=== PATIENT | female | born 1965 | race American Indian/Alaskan Native ===

== ENCOUNTER 2021-02-18 14:33 | Emergency (ER) | payer MEDICAID ==
[2021-02-18] MEDS ORDERED: ONDANSETRON 4 MG/2 ML INJ IV ONE (16:39)
[2021-02-18] MEDS ORDERED: MORPHINE 4 MG/1 ML INJ IV ONE (16:39)
--- NOTE | 2021-02-18 16:43 | Emergency Department Report ---
HPI - General Chief Complaint: Abdominal Pain Time Seen by Provider: 02/18/21 16:13 - HPI HPI: This is a 55-year-old female presents to the emergency department with complaint of generalized abdominal pain, nausea with vomiting, that has been going on for the past 1.5 weeks. The patient was recently in the emergency department at [facility] and says that she was discharged home with the diagnosis of a left kidney mass. She was told to follow-up outpatient with primary care, gastroenterology, and urology. She was unable to fill the Zofran ODT that was prescribed to her. She says that the outpatient appointments are too far out for the level of abdominal pain she is currently having. She says that it is 9 out of 10 in intensity. And she says that it feels like it is "moving." No known aggravating or alleviating factors. Patient denies any fever, diarrhea, constipation, dysuria, vaginal bleeding or discharge. ED Past Medical Hx - Past Medical History Previous Medical History?: Yes Hx Seizures: Yes Additional medical history: Mass on kidney. Hx TBI - Medications Home Medications: Home Medications Medication Instructions Recorded Confirmed Last Taken Type HYDROcodone/APAP 5-325 [[place] 1 each PO Q6HR PRN #12 tablet 02/18/21 Unknown Rx 5/325] Ondansetron [Zofran Odt] 4 mg PO Q8HR PRN #15 tab.rapdis 02/18/21 Unknown Rx ED Review of Systems ROS: Stated complaint: CHEST PAIN, ABD PAIN Other details as noted in HPI Comment: All other systems reviewed and negative Constitutional: denies: chills, fever Eyes: denies: eye pain, vision change ENT: denies: ear pain, throat pain Respiratory: denies: cough, shortness of breath Cardiovascular: denies: chest pain, palpitations Gastrointestinal: abdominal pain, nausea, vomiting. denies: diarrhea, constipation Genitourinary: denies: dysuria, discharge Musculoskeletal: denies: back pain, arthralgia Skin: denies: rash, lesions Neurological: denies: headache, weakness Physical Exam - Physical Exam Vital Signs: Vital Signs 02/18/21 14:45 Temperature 99.1 F Pulse Rate 72 Respiratory 18 Rate Blood Pressure 150/104 O2 Sat by Pulse 99 Oximetry Physical Exam: GENERAL: The patient is well-developed well-nourished. HENT: Normocephalic. Atraumatic. Patient has moist mucous membranes. EYES: Extraocular motions are intact. NECK: Supple. Trachea is midline. CHEST/LUNGS: Clear to auscultation. There is no respiratory distress noted. HEART/CARDIOVASCULAR: Regular. There is no tachycardia. There is no murmur. ABDOMEN: Abdomen is soft. Generalized abdominal tenderness to palpation. No guarding. Patient has normal bowel sounds. There is no abdominal distention. SKIN: Skin is warm and dry. NEURO: The patient is awake, alert, and oriented. The patient is cooperative. The patient has no focal neurologic deficits. Normal speech. MUSCULOSKELETAL: There is no tenderness or deformity. There is no limitation range of motion. ED Course Vital Signs 02/18/21 14:45 Temperature 99.1 F Pulse Rate 72 Respiratory 18 Rate Blood Pressure 150/104 O2 Sat by Pulse 99 Oximetry - EJ/Peripheral Line Neck L Time Out Performed: Yes Indications: nurses unable to establis Skin Cleansed in Sterile Fashion: Yes Size: 22 Dressing Placed: Tegaderm, tape Patient Tolerated Procedure: well ED Medical Decision Making - Lab Data Result diagrams: 02/18/21 16:47 02/18/21 16:47 Lab Results 02/18/21 02/18/21 02/18/21 Range/Units 16:47 16:47 Unknown WBC 7.4 (4.5-11.0) K/mm3 RBC 4.65 (3.65-5.03) M/mm3 Hgb 15.2 H (10.1-14.3) gm/dl Hct 45.7 H (30.3-42.9) % MCV 98 H (79-97) fl MCH 33 H (28-32) pg MCHC 33 (30-34) % RDW 13.3 (13.2-15.2) % Plt Count 233 (140-440) K/mm3 Lymph % (Auto) 29.7 (13.4-35.0) % [facility] % (Auto) 3.1 (0.0-7.3) % Eos % (Auto) 0.4 (0.0-4.3) % Baso % (Auto) 0.6 (0.0-1.8) % Lymph # (Auto) 2.2 (1.2-5.4) K/mm3 [facility] # (Auto) 0.2 (0.0-0.8) K/mm3 Eos # (Auto) 0.0 (0.0-0.4) K/mm3 Baso # (Auto) 0.0 (0.0-0.1) K/mm3 Seg Neutrophils % 66.2 (40.0-70.0) % Seg Neutrophils # 4.9 (1.8-7.7) K/mm3 Sodium 137 (137-145) mmol/L Potassium 4.5 (3.6-5.0) mmol/L Chloride 104.7 (98-107) mmol/L Carbon Dioxide 23 (22-30) mmol/L Anion Gap 14 mmol/L BUN 14 (7-17) mg/dL Creatinine 0.5 L (0.6-1.2) mg/dL Estimated GFR > 60 ml/min BUN/Creatinine Ratio 28 % Glucose 89 (65-100) mg/dL Calcium 10.0 (8.4-10.2) mg/dL Total Bilirubin 0.70 (0.1-1.2) mg/dL Direct Bilirubin < 0.2 (0-0.2) mg/dL Indirect Bilirubin 0.5 mg/dL AST 15 (5-40) units/L ALT 9 (7-56) units/L Alkaline Phosphatase 74 (35-129) units/L Total Protein 6.9 (6.3-8.2) g/dL Albumin 4.2 (3.9-5) g/dL Albumin/Globulin Ratio 1.6 % Lipase 22 (13-60) units/L Urine Color Yellow (Yellow) Urine Turbidity Clear (Clear) Urine pH 6.0 (5.0-7.0) Ur Specific [place] 1.016 (1.003-1.030) Urine Protein <15 mg/dl (Negative) mg/dL Urine Glucose (UA) Neg (Negative) mg/dL Urine Ketones Neg (Negative) mg/dL Urine Blood Sm (Negative) Urine Nitrite Neg (Negative) Urine Bilirubin Neg (Negative) Urine Urobilinogen 2.0 (<2.0) mg/dL Ur Leukocyte Esterase Neg (Negative) Urine WBC (Auto) 1.0 (0.0-6.0) /HPF Urine RBC (Auto) 16.0 (0.0-6.0) /HPF U Epithel Cells (Auto) 1.0 (0-13.0) /HPF Urine Mucus Few /HPF - Radiology Data Radiology results: report reviewed CT ABDOMEN AND PELVIS WITH CONTRAST INDICATION: Abd pain, hx of L kidney mass on U/S. TECHNIQUE: Axial CT images were obtained through the abdomen and pelvis after 100 cc IV contrast. All CT scans at this location are performed using CT dose reduction for ALARA by means of automated exposure control. COMPARISON: None available. FINDINGS: LOWER CHEST: No significant abnormality. LIVER: No significant abnormality. GALLBLADDER: No significant abnormality. BILE DUCTS: No significant abnormality. PANCREAS: No significant abnormality. SPLEEN: No significant abnormality. ADRENALS: No significant abnormality. RIGHT KIDNEY and URETER: No significant abnormality. LEFT KIDNEY and URETER: Simple 1.8 cyst lower pole left kidney. Simple 1.9 cm cyst lateral midpole left kidney. STOMACH and SMALL BOWEL: No significant abnormality. COLON: No significant abnormality. APPENDIX: Normal PERITONEUM: No free fluid. No free air. No fluid collection. LYMPH NODES: No significant adenopathy. AORTA and ARTERIES: No significant abnormality. IVC and VEINS: No significant abnormality. URINARY BLADDER: No significant abnormality. REPRODUCTIVE ORGANS: No significant abnormality. ADDITIONAL FINDINGS: None. SKELETAL SYSTEM: No significant abnormality. IMPRESSION: 1. 2 simple left renal cysts. No solid renal mass. - Medical Decision Making This patient presents to the emergency department with complaint of abdominal pain, nausea and vomiting. She says that she was recently diagnosed with a left kidney mass. Patient's labs have been mostly unremarkable including CBC, metabolic panel, urinalysis. CT scan of the abdomen and pelvis with IV contrast shows 2 simple left renal cysts without evidence of a solid mass. No CT evidence or lab abnormalities to explain the patient's abdominal pain. She was given IV analgesia and antiemetics. She was reevaluated multiple times over multiple hours and is feeling improved. There has been no further nausea or vomiting and the patient was able to pass an oral challenge. Vital signs reassuring throughout her ED course including being afebrile. For all these reasons the patient appears safe for discharge home at this time. She has been given outpatient referral for [facility] and instructed to follow- up with her PCP. She will return to the emergency department with any worsening of her symptoms or with any acute distress. Critical Care Time: No Critical care attestation.: If time is entered above; I have spent that time in minutes in the direct care of this critically ill patient, excluding procedure time. ED Disposition Clinical Impression: Renal cyst Abdominal pain Qualifiers: Abdominal location: generalized Qualified Code(s): R10.84 - Generalized abdominal pain Nausea & vomiting Qualifiers: Vomiting type: unspecified Vomiting Intractability: non-intractable Qualified Code(s): R11.2 - Nausea with vomiting, unspecified Hypertension Qualifiers: Hypertension type: primary hypertension Qualified Code(s): I10 - Essential (primary) hypertension Disposition: TO HOME OR SELFCARE Is pt being admited?: No Condition: Stable Instructions: Abdominal Pain, Adult, Nausea and Vomiting, Adult, Hypertension, Adult, Abdominal Pain (ED), Hypertension (ED) Additional Instructions: Please follow-up with a primary care physician in the next few days. Please follow-up with gastroenterology regarding your abdominal pain. I am giving you a referral for [facility]. The CT scan of your abdomen and pelvis did not show any solid renal mass, but did show multiple cysts on your kidneys. You have been prescribed a medication that is sedating and therefore should not be taken prior to driving, working, and responsible for children and in no way should be mixed with alcohol of any quantity. Return to the emergency department with any worsening of your symptoms, new or concerning symptoms not addressed during this current emergency department visit, or with any acute distress. Prescriptions: HYDROcodone/APAP 5-325 [[place] 5/325] 1 each PO Q6HR PRN #12 tablet PRN Reason: Pain Ondansetron [Zofran Odt] 4 mg PO Q8HR PRN #15 tab.rapdis PRN Reason: Nausea Referrals: [facility] [Provider Group] - 2-3 Days Time of Disposition: 19:01
[2021-02-18 17:16] LABS: Basophils % (Auto) 0.6 % (0.0-1.8); Eosinophils % (Auto) 0.4 % (0.0-4.3); Hematocrit 45.7 % (30.3-42.9); Hemoglobin 15.2 gm/dl (10.1-14.3); Lymphocytes # (Auto) 2.2 K/mm3 (1.2-5.4); Lymphocytes % (Auto) 29.7 % (13.4-35.0); Mean Corpuscular HGB Conc 33 % (30-34); Mean Corpuscular Volume 98 fl (79-97); Monocytes # (Auto) 0.2 K/mm3 (0.0-0.8); Monocytes % (Auto) 3.1 % (0.0-7.3); Platelet Count 233 K/mm3 (140-440); Red Blood Count 4.65 M/mm3 (3.65-5.03); Red Cell Distribution Width 13.3 % (13.2-15.2)
[2021-02-18 17:43] LABS: Alanine Aminotransferase 9 units/L (7-56); Albumin 4.2 g/dL (3.9-5); Blood Urea Nitrogen 14 mg/dL (7-17); Hemolysis Index 43
[2021-02-18 17:49] LABS: BUN/Creatinine Ratio 28; Bilirubin,Direct < 0.2 mg/dL (0-0.2)
[2021-02-18 18:35] LABS: Bilirubin,Urine NEG (Negative); Blood,Urine SM (Negative); Color,Urine Yellow (Yellow); Mucus,Urine FEW /HPF; Protein,Urine <15 mg/dL mg/dL (Negative)
--- NOTE | 2021-02-18 18:54 | Cat Scan Report ---
CT ABDOMEN AND PELVIS WITH CONTRAST INDICATION: Abd pain, hx of L kidney mass on U/S. TECHNIQUE: Axial CT images were obtained through the abdomen and pelvis after 100 cc IV contrast. All CT scans at this location are performed using CT dose reduction for ALARA by means of automated exposure contr ol. COMPARISON: None available. FINDINGS: LOWER CHEST: No significant abnormality. LIVER: No significant abnormality. GALLBLADDER: No significant abnormality. BILE DUCTS: No significant abnormality. PANCREAS: No significant abnormality. SPLEEN: No significant abnormality. ADRENALS: No significant abnormality. RIGHT KIDNEY and URETER: No significant abnormality. LEFT KIDNEY and URETER: Simple 1.8 cyst lower pole left kidney. Simple 1.9 cm cyst lateral midpole le ft kidney. STOMACH and SMALL BOWEL: No significant abnormality. COLON: No significant abnormality. APPENDIX: Normal PERITONEUM: No free fluid. No free air. No fluid collection. LYMPH NODES: No significant adenopathy. AORTA and ARTERIES: No significant abnormality. IVC and VEINS: No significant abnormality. URINARY BLADDER: No significant abnormality. REPRODUCTIVE ORGANS: No significant abnormality. ADDITIONAL FINDINGS: None. SKELETAL SYSTEM: No significant abnormality. IMPRESSION: 1. 2 simple left renal cysts. No solid renal mass. Signer Name: Rubén Campos MD Signed: 02/18/2021 6:50 PM Workstation Name: [id number]
[2021-02-18 19:06] VITALS: BP 158/92
== END 2021-02-18 19:10 | disposition home or self-care (01) ==
LOC: ED 14:33
DX: N28.1 Cyst of kidney, acquired (principal); R10.84 Generalized abdominal pain; R11.2 Nausea with vomiting, unspecified; R56.9 Unspecified convulsions; I10 Essential (primary) hypertension; Z79.899 Other long term (current) drug therapy; Z88.8 Allergy status to other drugs, medicaments and biological substances
CPT/HCPCS: 36415; 36556; 74177; 80048; 80076; 81001; 83690; 85025; 96374; 96375; 99284; J2270; J2405; Q9967